=== PATIENT | female | born 2000 | race Hispanic/Latino ===

== ENCOUNTER 2025-01-10 11:14 | Emergency (ER) | payer SELFPAY ==
[~2025-01-10] VITALS: Ht 162.6 cm; Wt 72.6 kg
[2025-01-10 11:40] LABS: BASOPHILS # (AUTO) 0.02 K/uL (0.00-0.20); BASOPHILS % (AUTO) 0.3 % (0.0-5.0); EOSINOPHILS # (AUTO) 0.05 K/uL (0.00-0.70); EOSINOPHILS % (AUTO) 0.7 % (0.0-8.0); HEMATOCRIT 43.9 % (36-48); IMMATURE GRANULOCYTE ABSOLUTE 0.02 K/uL (0-1); LYMPHOCYTES # (AUTO) 2.1 K/uL (1.0-4.8); LYMPHOCYTES % (AUTO) 27.5 % (21.0-51.0); MEAN CORPUSCULAR HEMOGLOBIN 28.4 pg (27.0-33.0); MEAN CORPUSCULAR VOLUME 86.1 fL (79-99); MONOCYTES # (AUTO) 0.3 K/uL (0.1-1.0); MONOCYTES % (AUTO) 4.3 % (3.0-13.0); NEUTROPHILS # (AUTO) 5.1 K/uL (1.8-7.7); NEUTROPHILS % (AUTO) 66.9 % (40.0-77.0); PLATELET COUNT (AUTO) 196 K/uL (130-400); RED CELL DISTRIBUTION WIDTH 13.2 % (11.0-15.5); WHITE BLOOD COUNT (AUTO) 7.6 K/uL (4.8-10.8)
[2025-01-10 11:59] LABS: CREATININE 0.7 mg/dL (0.5-1.0); POTASSIUM 3.3 mmol/L (3.5-5.1)
[2025-01-10 12:00] LABS: APPEARANCE,URINE CLEAR (CLEAR); BILIRUBIN,URINE NEGATIVE (NEGATIVE); COLOR,URINE LIGHT-YELLOW (YELLOW); GLUCOSE, URINE (UA) NEGATIVE (NEGATIVE); KETONES,URINE NEGATIVE (NEGATIVE); LEUKOCYTE ESTERASE ,URINE NEGATIVE Leu/uL (NEGATIVE); NITRATE,URINE NEGATIVE (NEGATIVE); OCCULT BLOOD,URINE NEGATIVE (NEGATIVE); PROTEIN,URINE NEGATIVE (NEGATIVE); UROBILINOGEN,URINE 0.2 mg/dL (0.2-1.0)
--- NOTE | 2025-01-10 12:06 | ERN ---
General Chief Complaint: Vaginal Bleeding Stated Complaint: VAGINAL BLEEDING, 5 WEEKS Time Seen by MD: 11:18 Time Seen by Midlevel: 11:18 Source: patient History of Present Illness Initial Comments 24-year-old female who presents to the emergency department due to vaginal bleeding. Describes the bleeding as spotting. Patient reports she is five weeks , A2. Denies any fever, dysuria, abdominal pain or further associated symptoms. Allergies: Coded Allergies: No Known Allergies (Unverified Allergy, Unknown, 01/10/25) Past Medical History Past Medical History: No Pertinent History Past Surgical History: Tonsillectomy, Other, Surgical History Other: EAR IMPLANT Female( History) LMP: Dec 02, 2024 : 5 Para: 2 Aborts: 2 ROS Dictation Constitutional: Negative for fever,chills, and weight loss Eyes: Negative for injury, pain,redness, and discharge ENT: Negative for injury,pain or swelling Cardiovascular: Negative for chest pain, palpitations, and edema Respiratory: Negative for shortness of breath, cough, and wheezing, Abdomen/GI: Negative for abdominal pain, nausea, vomiting, diarrhea, and constipation Back: Negative for injury and pain : Positive for vaginal bleeding Negative for painful urination, or discharge MS/Extremity: Negative for injury and deformity Skin: Negative for rash, and discoloration Neuro: Negative for headache, weakness, numbness, tingling, and seizure Psych: Negative for suicide ideation, homicidal ideation, and hallucinations Physical Exam Physical Exam Dictation General: awake, alert, no acute distress Head/Face: Normocephalic, atraumatic Eyes: PERRL, EOMI, normal conjunctiva ENT: oral cavity clear, oral mucosa moist Neck: Supple, normal range of motion Cardiovascular: RRR, normal S1/S2 Respiratory: CTAB, no respiratory distress, no rales or wheezes Abdomen: Soft, non-tender, non-distended, no guarding or rebound. Skin: Warm, dry, normal turgor, no rash MS/Extremity: Pulses equal, no cyanosis, neurovascular intact, FROM Neuro: COAx4, GCS 15, strength 5/5, CN 2-12 intact, normal cerebellar exam, normal gait Psych: Normal behavior, mood, and affect normal Results Laboratory and Microbiology Lab and Micro Result Laboratory Tests Test 01/10/25 11:33 01/10/25 11:38 White Blood Count 7.6 K/uL (4.8-10.8) Red Blood Count 5.10 MIL/uL (4.00-5.50) Hemoglobin 14.5 g/dL (12.0-16.0) Hematocrit 43.9 % (36-48) Mean Corpuscular Volume 86.1 fL (79-99) Mean Corpuscular Hemoglobin 28.4 pg (27.0-33.0) Mean Corpuscular Hemoglobin Concent 33.0 g/dL (32.0-36.0) Red Cell Distribution Width 13.2 % (11.0-15.5) Platelet Count 196 K/uL (130-400) Mean Platelet Volume 11.8 fL (7.5-10.5) H Immature Granulocyte % (Auto) 0.3 % (0-1) Neutrophils (%) (Auto) 66.9 % (40.0-77.0) Lymphocytes (%) (Auto) 27.5 % (21.0-51.0) Monocytes (%) (Auto) 4.3 % (3.0-13.0) Eosinophils (%) (Auto) 0.7 % (0.0-8.0) Basophils (%) (Auto) 0.3 % (0.0-5.0) Neutrophils # (Auto) 5.1 K/uL (1.8-7.7) Lymphocytes # (Auto) 2.1 K/uL (1.0-4.8) Monocytes # (Auto) 0.3 K/uL (0.1-1.0) Eosinophils # (Auto) 0.05 K/uL (0.00-0.70) Basophils # (Auto) 0.02 K/uL (0.00-0.20) Absolute Immature Granulocyte (auto 0.02 K/uL (0-1) Nucleated Red Blood Cells 0.0 % (0.0-0.19) Sodium Level 136 mmol/L (136-145) Potassium Level 3.3 mmol/L (3.5-5.1) L Chloride Level 102 mmol/L (101-111) Carbon Dioxide Level 30 mmol/L (21-32) Blood Urea Nitrogen 6 mg/dL (7-18) L Creatinine 0.7 mg/dL (0.5-1.0) Glomerular Filtration Rate Calc 123 mL/min (>90) Random Glucose 98 mg/dL (70-105) Total Calcium 8.3 mg/dL (8.5-10.1) L Human Chorionic Gonadotropin, Quant 15785 mIU/mL (0-5) H Urine Color LIGHT-YELLOW (YELLOW) Urine Appearance CLEAR (CLEAR) Urine pH 5.0 (5.0-8.0) Urine Specific [place] 1.017 (1.001-1.031) Urine Protein NEGATIVE mg/dL (NEGATIVE) Urine Glucose (UA) NEGATIVE mg/dL (NEGATIVE) Urine Ketones NEGATIVE mg/dL (NEGATIVE) Urine Occult Blood NEGATIVE (NEGATIVE) Urine Nitrate NEGATIVE (NEGATIVE) Urine Bilirubin NEGATIVE mg/dL (NEGATIVE) Urine Urobilinogen 0.2 mg/dL (0.2-1.0) Urine Leukocyte Esterase NEGATIVE [place]/uL Urine RBC None /HPF (0-1) Urine WBC 2-5 /HPF (0-1) H Urine Squamous Epithelial Cells RARE /HPF (0-2) Urine Bacteria None /HPF (None Seen) Labs Reviewed?: Yes EKG/XRAY/US/CT/MRI Ultrasound Comment REASON: Vaginal Bleeding ORDERING PHYSICIAN: LISA PA PROCEDURE: OB <14 - US OB <14 WEEKS Exam Type: US OB <14 WEEKS Clinical Information: Vaginal Bleeding Comparison: None FINDINGS: There is an intrauterine gestational sac. Gestational sac diameter is 1.2 cm , corresponds to 5 weeks 0 days. No embryonic pole or yolk sac seen at this time. The uterus is anteverted with normal shape. It measures 9.3 x 5.8 x 7.3 cm in its maximum length, anteroposterior and transverse dimensions. The myometrium is homogeneous and there is no evidence of focal or diffuse lesions. Both ovaries are normal in size and echogenicity and vascularity except for simple cyst left ovary 3.8 cm. No adnexal masses. No free fluid or collections. Urinary bladder appears normal. IMPRESSION: Intrauterine gestational sac, with diameter corresponding to a gestational age of 5 weeks 0 days. No embryonic pole or yolk sac seen at this time. Consider short-term follow-up to confirm viability. DICTATED BY: JOSETTE BAJWA MD DATE: 01/10/25 1202 MDM MDM: Differential diagnosis: early bleeding, miscarriage, threatened Rationale: 24-year-old female who presents to the emergency department due to vaginal bleeding. Describes the bleeding as spotting. Patient reports she is five weeks , A2. Denies any fever, dysuria, abdominal pain or further associated symptoms. Labs obtained CBC WNL, chemistry shows hypokalemia of 3.3 for which k-lyte was administered. UA negative for UTI. US shows single intrauterine measuring 5 weeks, no embryonic pole or yolk sac seen at this time. Pt was educated on findings and diagnosis. Advised to follow-up with PCP and OBGYN. Pt verbalized understanding, stable for discharge. There are no social concerns with this patient. I independently interpreted the test that were performed, results were reviewed by me and considered findings on radiology if ordered. ED Course Orders Procedure Category Date Status Time Cbc With Differential LAB 01/10/25 Complete 11:24 Basic Metabolic Panel LAB 01/10/25 Complete 11:24 Urinalysis LAB 01/10/25 Complete W/Microscopic 11:24 Hcg,Quantitative LAB 01/10/25 Complete 11:24 Us Ob <14 Weeks US 01/10/25 Resulted 11:24 Potassium Bicarb/Cit PHA 01/10/25 Complete Ac 25meq (K-Lyte Ta 13:00 Current Medications Medications (Trade) Dose Ordered Sig/[place] Route PRN Reason Start Time Stop Time Status Last Admin Dose Admin Potassium Bicarbonate (K-Lyte Tablet Eff 25 Meq Tablet.eff) 25 meq ONCE ONCE PO 01/10/25 13:00 01/10/25 13:01 DC 01/10/25 12:54 Vital Signs Date Time Temp Pulse Resp B/P (MAP) Pulse Ox O2 Delivery O2 Flow Rate FiO2 01/10/25 13:00 97.9 78 16 118/68 97 Room Air* 0 21 01/10/25 11:17 98.1 80 16 140/82 99 Room Air 0 DX & DISP Disposition: Discharge Departure Impression: Primary Impression: , threatened, early Additional Impression: Vaginal bleeding in Condition: Stable Additional Instructions: Discharge home. Rest. Follow up with primary care in 24 hours. Return to the ER for any acute changes or worsening symptoms. If any medications were prescribed take as directed. Okay to continue home medications unless otherwise discussed during your visit in the emergency room today. Patient was also advised to follow-up with primary care physician in 1 to 2 days for continued monitoring. I performed the substantive portion of the visit. I have reviewed and personal ly made and approve the management plan that is documented in the notes by myself or the ELOISA. I acknowledge full responsibility for the patient's management plan. LISA PA Jan 10, 2025 12:06
[2025-01-10 12:09] LABS: MUCUS,URINE RARE LPF (None Seen); SQUAMOUS EPITHELIAL CELL,UR RARE /HPF (0-2)
[2025-01-10] MEDS: PoTASSium BIcarbonate/CIT AC 25 MEQ TABLET.EFF PO ONE (12:54)
[2025-01-10 13:00] VITALS: BP 118/68; PULSE 78; RESP 16; TEMP 97.8; O2SAT 97
== END 2025-01-10 13:10 | disposition home or self-care (01) ==
LOC: EDH 11:14
DX: O03.9 Complete or unspecified spontaneous abortion without complication (principal); R10.2 Pelvic and perineal pain; Z3A.01 Less than 8 weeks gestation of pregnancy; Z90.89 Acquired absence of other organs; Z98.890 Other specified postprocedural states
CPT/HCPCS: 36415; 76801; 80048; 81001; 84702; 85025; 99284

== ENCOUNTER 2025-01-25 14:13 | Emergency (ER) | payer MEDICAID ==
[~2025-01-25] VITALS: Ht 160 cm; Wt 74.8 kg
--- NOTE | 2025-01-25 14:22 | ERN ---
General Chief Complaint: Pelvic Pain Stated Complaint: PELVIC PAIN Time Seen by MD: 14:16 Source: patient History of Present Illness Initial Comments PATIENT IS A 24-YEAR-OLD FEMALE COMING IN TO BE EVALUATED FOR ABDOMINAL DISCOMFORT. PATIENT STATES THAT SHE IS AT SEVEN WEEKS BY DATE. SHE STATES THAT THIS MORNING SHE STARTED HAVING SUPRAPUBIC PAIN AND VAGINAL BLEEDING SO IS HERE FOR FURTHER EVALUATION. PATIENT DOES STATE THAT SHE WAS RECENTLY SEEN BY HER OBGYN DR. LEE AND TOLD THAT SHE HAD AN INTRAUTERINE . Allergies: Coded Allergies: No Known Allergies (Unverified Allergy, Unknown, 01/10/25) Past Medical History Past Medical History: No Pertinent History Past Surgical History: Tonsillectomy, Other, Surgical History Other: EAR IMPLANT Female( History) : 5 Para: 2 Aborts: 2 ROS Dictation CONSTITUTIONAL: NO CHILLS, NO FEVER, NO WEAKNESS, NO DIAPHORESIS, NO MALAISE. HEAD/FACE: NO SIGNS OF TRAUMA. EENT: NO EYE PAIN, NO BLURRED VISION, NO TEARING, NO DOUBLE VISION, NO EAR PAIN, NO EAR DISCHARGE, NO NOSE PAIN, NO NASAL CONGESTION, NO THROAT PAIN, NO THROAT SWELLING, NO MOUTH PAIN. RESPIRATORY: NO COUGH, NO ORTHOPNEA, NO SOB, NO STRIDOR, NO WHEEZING. CARDIOVASCULAR: NO CHEST PAIN, NO EDEMA, NO PALPITATIONS, NO SYNCOPE. GASTROINTESTINAL/ABDOMINAL: NO ABDOMINAL PAIN, NO CONSTIPATION, NO DIARRHEA, NO NAUSEA, NO VOMITING. GENITOURINARY: NO ABNORMAL DISCHARGE, NO DYSURIA, NO FREQUENT URINATION, NO HEMATURIA. NO COMPLAINTS OF PAIN IN THE GENITALS. MUSCULOSKELETAL: NO BACK PAIN, NO GOUT, NO JOINT PAIN, NO JOINT SWELLING, NO MUSCLE PAIN, NO MUSCLE STIFFNESS, NO NECK PAIN. INTEGUMENTARY: NO CHANGE IN COLOR, NO CHANGE IN HAIR/NAILS, NO DRYNESS, NO LESION, NO LUMPS, NO RASH. NEUROLOGICAL/PSYCH: NO ANXIETY, NOT DEPRESSED, NO EMOTIONAL PROBLEM, NO HEA DACHE, NO NUMBNESS, NO PRE-EXISTING DEFICIT, NO HISTORY OF SEIZURES, NO TREMORS, NO WEAKNESS. HEMATOLOGIC/LYMPHATIC: NOT ANEMIC, NO HISTORY OF BLOOD CLOTS, NO APPARENT BLEEDING, NO BRUISING, GLANDS NOT SWOLLEN. ALL SYSTEMS NEGATIVE, EXCEPT NOTED. Physical Exam Physical Exam Dictation VITAL SIGNS: REVIEWED. GENERAL APPEARANCE: ALERT, ORIENTED X3, NO ACUTE DISTRESS, OBESE. HEAD AND FACE: NON-TRAUMATIC. EYES: PERRL, PINK CONJUNCTIVAS, EYELID NO TRAUMA, ANTERIOR CHAMBER CLEAR. EARS: PINNAS INTACT AND NO SIGNS OF TRAUMA OR ERYTHEMA. EAR CANALS CLEAR AND NO DISCHARGE. TMS NO ERYTHEMA. NOSE: NO DISCHARGE, NO BLEEDING. OROPHARYNX: MOUTH NORMAL, TEETH NO CARIES, TONGUE PINK. PHARYNX CLEAR, NO ERYTHEMA. TONSILS NO EXUDATES, NO ABSCESSES NOTED. MUCOUS MEMBRANE MOIST. NECK: SUPPLE, NON-TENDER, NO THYROMEGALY, NO MASSES, NO JVD, NO BRUITS. BREAST: DEFERRED. CHEST: NO TENDERNESS, NO CREPITUS, NO PARADOXICAL MOVEMENT, NO RETRACTIONS. LUNGS: CLEAR, WELL-VENTILATED, SYMMETRIC, NO RALES, NO WHEEZING, NO RHONCHI, NO STRIDOR, GOOD BREATH SOUNDS BILATERALLY. HEART: REGULAR RATE, REGULAR RHYTHM, NO MURMUR, NO GALLOPS. VASCULAR: NO PERIPHERAL EDEMA. ABDOMEN: SOFT, POSITIVE BOWEL SOUNDS, NONDISTENDED, NO GUARDING, NONTENDER, NO REBOUND, NO MASSES NO HEPATOMEGALY, NO SPLENOMEGALY, NO SONG'S SIGN, NO HERNIAS. RECTAL: DEFERRED. GENITAL: DEFERRED. NEUROLOGICAL: NORMAL SPEECH, GROSS MOTOR FUNCTION INTACT, GROSS SENSORY FUNCTION INTACT. MUSCULOSKELETAL: NECK NONTENDER, FULL RANGE OF MOTION, BACK NONTENDER, FULL RANGE OF MOTION. EXTREMITIES: NONTENDER, FULL RANGE OF MOTION. SKIN: COLOR PINK, DRY, NO TURGOR, NO RASH, NO LACERATIONS, NO ABRASIONS, NO CONTUSIONS. LYMPHATICS: DEFERRED. Results Laboratory and Microbiology Lab and Micro Result Laboratory Tests Test 01/25/25 14:34 01/25/25 16:21 White Blood Count 10.1 K/uL (4.8-10.8) Red Blood Count 4.88 MIL/uL (4.00-5.50) Hemoglobin 13.9 g/dL (12.0-16.0) Hematocrit 41.6 % (36-48) Mean Corpuscular Volume 85.2 fL (79-99) Mean Corpuscular Hemoglobin 28.5 pg (27.0-33.0) Mean Corpuscular Hemoglobin Concent 33.4 g/dL (32.0-36.0) Red Cell Distribution Width 12.8 % (11.0-15.5) Platelet Count 237 K/uL (130-400) Mean Platelet Volume 11.4 fL (7.5-10.5) H Immature Granulocyte % (Auto) 0.3 % (0-1) Neutrophils (%) (Auto) 72.2 % (40.0-77.0) Lymphocytes (%) (Auto) 21.0 % (21.0-51.0) Monocytes (%) (Auto) 5.7 % (3.0-13.0) Eosinophils (%) (Auto) 0.5 % (0.0-8.0) Basophils (%) (Auto) 0.3 % (0.0-5.0) Neutrophils # (Auto) 7.3 K/uL (1.8-7.7) Lymphocytes # (Auto) 2.1 K/uL (1.0-4.8) Monocytes # (Auto) 0.6 K/uL (0.1-1.0) Eosinophils # (Auto) 0.05 K/uL (0.00-0.70) Basophils # (Auto) 0.03 K/uL (0.00-0.20) Absolute Immature Granulocyte (auto 0.03 K/uL (0-1) Nucleated Red Blood Cells 0.0 % (0.0-0.19) Sodium Level 135 mmol/L (136-145) L Potassium Level 3.7 mmol/L (3.5-5.1) Chloride Level 102 mmol/L (101-111) Carbon Dioxide Level 25 mmol/L (21-32) Blood Urea Nitrogen 10 mg/dL (7-18) Creatinine 0.8 mg/dL (0.5-1.0) Glomerular Filtration Rate Calc 105 mL/min (>90) Random Glucose 103 mg/dL (70-105) Total Calcium 8.6 mg/dL (8.5-10.1) Human Chorionic Gonadotropin, Quant 65431 mIU/mL (0-5) H Urine Color BROWN (YELLOW) Urine Appearance CLOUDY (CLEAR) H Urine pH 6.0 (5.0-8.0) Urine Specific [place] 1.024 (1.001-1.031) Urine Protein 30 mg/dL (NEGATIVE) H Urine Glucose (UA) NEGATIVE mg/dL (NEGATIVE) Urine Ketones NEGATIVE mg/dL (NEGATIVE) Urine Occult Blood LARGE (NEGATIVE) H Urine Nitrate NEGATIVE (NEGATIVE) Urine Bilirubin NEGATIVE mg/dL (NEGATIVE) Urine Urobilinogen 0.2 mg/dL (0.2-1.0) Urine Leukocyte Esterase NEGATIVE [place]/uL Urine RBC >100 /HPF (0-1) H Urine WBC 0-1 /HPF (0-1) Urine Other Crystals (Auto) 6 /HPF (None Seen) Urine Bacteria None /HPF (None Seen) Urine HCG, Qualitative POSITIVE (NEGATIVE) H Urine Opiates Screen NEGATIVE (NEGATIVE) Urine Barbiturates Screen NEGATIVE (NEGATIVE) Urine Phencyclidine Screen NEGATIVE (NEGATIVE) Urine Amphetamines Screen NEGATIVE (NEGATIVE) Urine Benzodiazepines Screen NEGATIVE (NEGATIVE) Urine Cocaine Screen NEGATIVE (NEGATIVE) Urine Marijuana (THC) Screen NEGATIVE (NEGATIVE) EKG/XRAY/US/CT/MRI Ultrasound Comment [address] [address] IMAGING REPORT Signed PATIENT: LARS YORK MR#: [id number] : 2000 SEX: F AGE: 24 LOCATION: [facility] ORDER [id number] STATUS: REG REPORT#: [id number] SERVICE [id number] REASON: ABD PAIN ORDERING PHYSICIAN: SARAH MCGHEE MD PROCEDURE: OB <14 - US OB <14 WEEKS Exam Type: US OB <14 WEEKS Clinical Information: ABD PAIN Comparison: None Findings: The uterus is normal in size and echogenicity. The endometrial lining is normal in thickness. No intrauterine or ectopic seen. The ovaries are normal in size and echogenicity. Simple cysts of the left ovary, 1.7 cm. Vascular Doppler flow exam and spectral analysis of waveforms analysis is unremarkable bilaterally. There is preserved vascularity to both ovaries on Doppler evaluation. Specifically, there is no evidence of ovarian torsion. No free fluid is noted throughout the cul-de-sac. There are no adnexal abnormalities. No other significant abnormalities are seen. No fluid collections or masses or free fluid are identified in the pelvis. Impression: No intrauterine or ectopic seen. DICTATED BY: JOSETTE BAJWA MD DATE: 01/25/25 5887 ELECTRONICALLY SIGNED BY: JOSETTE BAJWA MD DATE: 01/25/251636 MDM MDM: DIFFERENTIAL DIAGNOSIS: MISCARRIAGE, THREATENED MISCARRIAGE, RATIONALE: TESTS CONSIDERED AND ORDERED SECONDARY TO SHARED DECISION MAKING INCLUDE: PREVIOUS OUTSIDE RECORDS REVIEWED: OLD ER VISITS. PATIENT IS A 24-YEAR-OLD FEMALE COMING IN TO BE EVALUATED VAGINAL BLEED IN THE ABDOMINAL PAIN. ON ULTRASOUND THERE IS NO INTRAUTERINE . PATIENT DID STATE THAT SHE WAS RECENTLY SEEN BY HER OBGYN DR. LEE AND WAS TOLD THAT HE DID HAVE AN INTRAUTERINE . PATIENT THESE FINDINGS THE MOST FOLLOW UP WITH DIAGNOSIS IS MISCARRIAGE. I DID ADVISED HER APPROPRIATE FOLLOW UP WITH OBGYN FOR ONGOING EVALUATION AND TRENDING OF QUANTITATIVE HCG TO MAKE SURE IT 000S OUT. ED Course Orders Procedure Category Date Status Time Cbc With Differential LAB 01/25/25 Complete 14:18 Basic Metabolic Panel LAB 01/25/25 Complete 14:18 Urinalysis LAB 01/25/25 Complete W/Microscopic 14:18 ,Urine Test LAB 01/25/25 Complete 14:19 Hcg,Quantitative LAB 01/25/25 Complete 14:19 0.9%Nacl 1000ml (Ns PHA 01/25/25 Complete 1000ml) 14:30 Drug Screen Urine LAB 01/25/25 Complete 14:19 Us Ob <14 Weeks US 01/25/25 Resulted 15:37 Current Medications Medications (Trade) Dose Ordered Sig/[place] Route PRN Reason Start Time Stop Time Status Last Admin Dose Admin Sodium Chloride 1,000 ml @ 0 mls/hr ONCE ONCE IV 01/25/25 14:30 01/25/25 14:31 DC 01/25/25 15:35 Vital Signs Date Time Temp Pulse Resp B/P (MAP) Pulse Ox O2 Delivery O2 Flow Rate FiO2 01/25/25 14:15 98.2 91 16 154/81 99 Room Air DX & DISP Disposition: Discharge Departure Impression: Primary Impression: , threatened, early Condition: Stable Scripts Cephalexin Monohydrate (Keflex) 500 Mg Cap 1 CAP PO TID for 10 Days, #30 CAP 0 Refills Prov: SARAH MCGHEE MD 01/25/25 Additional Instructions: FOLLOW-UP WITH PRIMARY CARE PROVIDER IN 1 TO 2 DAYS. TAKE MEDICATIONS DIRECTED HERE IN THE EMERGENCY ROOM. OKAY TO CONTINUE HOME MEDICATIONS UNLESS OTHERWISE DISCUSSED DURING YOUR VISIT IN THE EMERGENCY ROOM TODAY. RETURN TO YOUR NEAREST EMERGENCY ROOM IF SYMPTOMS WORSEN OR IF THERE IS NO IMPROVEMENT. CALL 911 IF YOU NEED IMMEDIATE ASSISTANCE. TAKE TYLENOL [id number] NEEDED AND IF NO CONTRAINDICATIONS ARE PRESENT. INCREASE ORAL HYDRATION. A WOUND CULTURE OR URINE CULTURE WAS ORDERED HERE IN THE EMERGENCY ROOM DEPARTMENT PLEASE FOLLOW-UP WITH PRIMARY CARE PROVIDER AND ADVISE THEM TO GET REPEAT PORTS FROM OUR FACILITY. IF YOU HAD ANY TEO WRAP/SPLINTS THAT WERE APPLIED HERE, PLEASE DO NOT REMOVE THEM UNTIL YOU SEE YOUR PRIMARY CARE OR SPECIALTY. REFERRALS: Referrals: SELF,REFERRAL (PCP) SUE LEE Time of Disposition: 16:50 SARAH MCGHEE MD January 25, 2025 14:22
[2025-01-25 14:41] LABS: BASOPHILS # (AUTO) 0.03 K/uL (0.00-0.20); BASOPHILS % (AUTO) 0.3 % (0.0-5.0); EOSINOPHILS # (AUTO) 0.05 K/uL (0.00-0.70); EOSINOPHILS % (AUTO) 0.5 % (0.0-8.0); HEMATOCRIT 41.6 % (36-48); IMMATURE GRANULOCYTE ABSOLUTE 0.03 K/uL (0-1); LYMPHOCYTES # (AUTO) 2.1 K/uL (1.0-4.8); MEAN CORPUSCULAR HEMOGLOBIN 28.5 pg (27.0-33.0); MEAN CORPUSCULAR HGB CONC 33.4 g/dL (32.0-36.0); MEAN CORPUSCULAR VOLUME 85.2 fL (79-99); MONOCYTES # (AUTO) 0.6 K/uL (0.1-1.0); MONOCYTES % (AUTO) 5.7 % (3.0-13.0); NEUTROPHILS # (AUTO) 7.3 K/uL (1.8-7.7); NEUTROPHILS % (AUTO) 72.2 % (40.0-77.0); PLATELET COUNT (AUTO) 237 K/uL (130-400); RED BLOOD CELL COUNT(AUTO) 4.88 MIL/uL (4.00-5.50); RED CELL DISTRIBUTION WIDTH 12.8 % (11.0-15.5); WHITE BLOOD COUNT (AUTO) 10.1 K/uL (4.8-10.8)
[2025-01-25 15:17] LABS: POTASSIUM 3.7 mmol/L (3.5-5.1)
[2025-01-25] MEDS: 0.9%NACL 1000ML 1,000 ML IV ONE (15:35)
[2025-01-25 15:36] LABS: CREATININE 0.8 mg/dL (0.5-1.0)
--- NOTE | 2025-01-25 16:02 | NUR ---
ULTRA SOUND AT BEDSIDE
[2025-01-25 16:32] LABS: HCG,QUALITATIVE URINE POSITIVE (NEGATIVE)
[2025-01-25 16:34] LABS: APPEARANCE,URINE CLOUDY (CLEAR); BILIRUBIN,URINE NEGATIVE (NEGATIVE); COLOR,URINE BROWN (YELLOW); GLUCOSE, URINE (UA) NEGATIVE (NEGATIVE); KETONES,URINE NEGATIVE (NEGATIVE); LEUKOCYTE ESTERASE ,URINE NEGATIVE Leu/uL (NEGATIVE); MUCUS,URINE RARE LPF (None Seen); NITRATE,URINE NEGATIVE (NEGATIVE); OCCULT BLOOD,URINE LARGE (NEGATIVE); PROTEIN,URINE 30 mg/dL (NEGATIVE); RBC,URINE >100 /HPF (0-1); UNCLASSIFIED CRYSTAL 6 /HPF (None Seen); UROBILINOGEN,URINE 0.2 mg/dL (0.2-1.0); WBC,URINE 0-1 /HPF (0-1)
[2025-01-25 16:37] LABS: AMPHET/METH SCREEN,URINE NEGATIVE (NEGATIVE); BARBITURATE SCREEN, URINE NEGATIVE (NEGATIVE); BENZODIAZEPINES SCREEN,URINE NEGATIVE (NEGATIVE); CANNABINOID SCREEN,URINE NEGATIVE (NEGATIVE); COCAINE SCREEN,URINE NEGATIVE (NEGATIVE); OPIATE SCREEN,URINE NEGATIVE (NEGATIVE); PHENCYCLIDINE SCREEN,URINE NEGATIVE (NEGATIVE)
--- NOTE | 2025-01-25 16:37 | HMCIMG ---
Exam Type: US OB <14 WEEKS Clinical Information: ABD PAIN Comparison: None Findings: The uterus is normal in size and echogenicity. The endometrial lining is normal in thickness. No intrauterine or ectopic seen. The ovaries are normal in size and echogenicity. Simple cysts of the left ovary, 1.7 cm. Vascular Doppler flow exam and spectral analysis of waveforms analysis is unremarkable bilaterally. There is preserved vascularity to both ovaries on Doppler evaluation. Specifically, there is no evidence of ovarian torsion. No free fluid is noted throughout the cul-de-sac. There are no adnexal abnormalities. No other significant abnormalities are seen. No fluid collections or masses or free fluid are identified in the pelvis. Impression: No intrauterine or ectopic seen.
[2025-01-25] MEDS ORDERED: CEPH500B PO (16:51)
[2025-01-25 16:53] VITALS: BP 151/83; PULSE 88; RESP 16; TEMP 98.2; O2SAT 99
== END 2025-01-25 17:00 | disposition home or self-care (01) ==
LOC: EDH 14:13
DX: O20.0 Threatened abortion (principal); Z3A.01 Less than 8 weeks gestation of pregnancy; Z79.899 Other long term (current) drug therapy; Z90.89 Acquired absence of other organs; Z98.890 Other specified postprocedural states
CPT/HCPCS: 99284; 96360; 76801; 80048; 80305; 84702; 85025; 81025; 36415; 81001; J7030